=== PATIENT | female | born 1985 | race Caucasian/White ===

== ENCOUNTER 2018-10-22 10:56 | Outpatient (CLI) | payer MEDICAID ==
[2018-10-22 13:20] LABS: RUPTURE FETAL MEMBRANES NEGATIVE (NEGATIVE)
== END 2018-10-22 16:19 | disposition home or self-care (01) ==
LOC: OBT 10:56 → L-D 11:18 → OBT 16:19
DX: O36.5930 Maternal care for other known or suspected poor fetal growth, third trimester, not applicable or unspecified (principal); Z3A.37 37 weeks gestation of pregnancy
CPT/HCPCS: 76815; 76818; 76820; 84112

== ENCOUNTER 2018-11-01 13:15 | Inpatient (IN) | payer MEDICAID ==
[~2018-11-01 13:15] MED LIST: CEFAZOLIN 1 GM INJ
[2018-11-01] MEDS ORDERED: CARBOPROST 250 MCG INJ IM (17:00)
[2018-11-01] MEDS ORDERED: MISOPROSTOL 200 MCG TAB PR (17:00)
[2018-11-01] MEDS ORDERED: METHYLERGONOVINE 0.2 MG INJ IM (17:00)
[2018-11-01] MEDS ORDERED: OXYTOCIN 30 UNITS/LR 500 ML IV ×2 (17:00)
[2018-11-01 17:44] LABS: ADD MAN DIFF? NO
[2018-11-01 17:47] LABS: WHITE BLOOD COUNT 4.6 10^3/ul (4.8-10.8)
[2018-11-01 17:47] LABS: BASOPHILS % 0.2 % (0.0-2.0); EOSINOPHILS % 0.4 % (0.0-7.0); HEMATOCRIT 33.7 % (37.0-47.0); HEMOGLOBIN 11.3 g/dl (12.0-16.0); LYMPHOCYTES # 1.3 10^3/ul (0.8-2.9); LYMPHOCYTES % 27.5 % (15.0-51.0); MEAN CORPUSCULAR HEMOGLOBIN 30.1 pg (29.0-33.0); MEAN CORPUSCULAR HGB CONC 33.5 g/dl (32.0-37.0); MEAN CORPUSCULAR VOLUME 89.6 fl (82.0-101.0); MEAN PLATELET VOLUME 10.4 fl (7.4-10.4); MONOCYTE # 0.3 10^3/ul (0.3-0.9); MONOCYTES % 6.2 % (0.0-11.0); NEUTROPHILS % 65.3 % (39.0-77.0); PLATELET COUNT 209 10^3/UL (140-415); RED BLOOD COUNT 3.76 10^6/ul (4.20-5.40); RED CELL DISTRIBUTION WIDTH 13.6 % (11.5-14.5)
[2018-11-01 18:06] LABS: INR 0.88; PT RATIO 0.9
[2018-11-01 18:07] LABS: PARTIAL THROMBOPLASTIN TIME 30.3 Sec (23.0-35.0)
[2018-11-01] MEDS: LACTATED RINGER'S 1,000 ML IV ×3 (18:29→22:16)
[2018-11-01] MEDS ORDERED: ONDANSETRON 4 MG INJ (20:42)
[2018-11-01] MEDS ORDERED: CITRIC ACID/NA CITRATE 30 ML CUP (20:43)
[2018-11-01] MEDS: CEFAZOLIN 2 GM/50 ML (PMX) 50 ML IVPB (21:28)
[2018-11-01] MEDS ORDERED: METOCLOPRAMIDE 10 MG INJ (22:34)
[2018-11-01] MEDS ORDERED: OXYTOCIN 10 UNIT INJ (22:34)
[2018-11-01] MEDS ORDERED: morphine SULFATE/PF (10 MG/10 ML) INJ (22:34)
[2018-11-01] MEDS ORDERED: PHENYLephrine (100 MCG/ML) 5ML SYG (22:34)
[2018-11-01] MEDS ORDERED: FENTAnyl 50 MCG/ML VIAL (22:34)
[2018-11-01] MEDS ORDERED: ONDANSETRON 4 MG INJ IV ×2 (23:00→23:30)
[2018-11-01] MEDS ORDERED: NALOXONE (0.4 MG/ML) INJ IV (23:00)
[2018-11-01] MEDS ORDERED: TRIMETHOBENZAMIDE 100 MG/ML VIAL IM ×2 (23:00→23:30)
[2018-11-01] MEDS ORDERED: DIPHENHYDRAMINE 50 MG INJ IV ×2 (23:00→23:30)
[2018-11-01] MEDS ORDERED: morphine 2 MG INJ IV ×2 (23:00)
[2018-11-01] MEDS ORDERED: NALBUPHINE HCL (10 MG/1 ML) INJ IV (23:00)
[2018-11-01] MEDS ORDERED: FENTAnyl 50 MCG/ML VIAL IV ×3 (23:30)
[2018-11-01] MEDS ORDERED: hydrALAzine 20 MG INJ IV (23:30)
[2018-11-01] MEDS ORDERED: EPHEDrine SULFATE 50 MG/5 ML SYG IV (23:30)
[2018-11-01] MEDS ORDERED: LABETALOL HCL 20MG INJ IV (23:30)
[2018-11-01] MEDS ORDERED: ALBUTEROL 0.083% (NEB) 2.5 MG/3 ML AMP HHN (23:30)
[2018-11-01] MEDS ORDERED: IPRATROPIUM (NEB) 0.5 MG/2.5 ML AMP HHN (23:30)
[2018-11-01] MEDS ORDERED: HYDROmorphONE 1 MG/5 ML IV SYRINGE IV ×3 (23:30)
[2018-11-01] MEDS ORDERED: MIDAZOLAM 1 MG/ML 2 ML INJ IV (23:30)
[2018-11-01] MEDS ORDERED: MEPERIDINE 25 MG INJ IV (23:30)
[2018-11-02] MEDS ORDERED: METHYLERGONOVINE 0.2 MG INJ IM
[2018-11-02] MEDS ORDERED: MISOPROSTOL 200 MCG TAB PR
[2018-11-02] MEDS ORDERED: NACL 0.9% 3 ML SYG IV
[2018-11-02] MEDS ORDERED: CARBOPROST 250 MCG INJ IM
[2018-11-02] MEDS ORDERED: LANOLIN HPA 1 PKT TOP
[2018-11-02] MEDS ORDERED: OXYTOCIN 30 UNITS/LR 500 ML IV
[2018-11-02] MEDS: OXYTOCIN 30 UNITS/LR 500 ML IV (00:41)
[2018-11-02 04:59] LABS: ADD MAN DIFF? NO
[2018-11-02 05:03] LABS: BASOPHILS % 0.2 % (0.0-2.0); EOSINOPHILS % 0.5 % (0.0-7.0); HEMATOCRIT 36.2 % (37.0-47.0); HEMOGLOBIN 11.5 g/dl (12.0-16.0); LYMPHOCYTES # 1.6 10^3/ul (0.8-2.9); LYMPHOCYTES % 24.2 % (15.0-51.0); MEAN CORPUSCULAR HGB CONC 31.8 g/dl (32.0-37.0); MEAN CORPUSCULAR VOLUME 91.4 fl (82.0-101.0); MEAN PLATELET VOLUME 10.3 fl (7.4-10.4); MONOCYTE # 0.4 10^3/ul (0.3-0.9); MONOCYTES % 5.4 % (0.0-11.0); NEUTROPHIL # 4.5 10^3/ul (1.6-7.5); NEUTROPHILS % 69.2 % (39.0-77.0); PLATELET COUNT 201 10^3/UL (140-415); RED BLOOD COUNT 3.96 10^6/ul (4.20-5.40); RED CELL DISTRIBUTION WIDTH 13.2 % (11.5-14.5)
[2018-11-02 05:03] LABS: WHITE BLOOD COUNT 6.4 10^3/ul (4.8-10.8)
[2018-11-02] MEDS: IBUPROFEN 600 MG TAB PO ×2 (06:00)
[2018-11-02] MEDS: CEFAZOLIN 2 GM/50 ML (PMX) 50 ML IVPB ×3 (06:38→17:55)
[2018-11-02] MEDS: ENOXAPARIN 40 MG/0.4 ML SYG SC (11:21)
[2018-11-02] MEDS: LACTATED RINGER'S 1,000 ML IV (13:17)
[2018-11-02 15:01] LABS: RAPID PLASMA REAGIN NONREACTIVE (NR)
[2018-11-02] MEDS: LANOLIN HPA 1 PKT TOP (17:56)
[2018-11-02] MEDS: KETOROLAC 30 MG INJ IV (22:25)
[2018-11-03] MEDS: OXYCODONE/ACETAMINOPHEN (5/325) TAB PO ×3 (05:31→17:25)
[2018-11-03] MEDS: ENOXAPARIN 40 MG/0.4 ML SYG SC (10:13)
[2018-11-03] MEDS ORDERED: ACETAMINOPHEN 325 MG TAB PO (12:00)
[2018-11-04] MEDS: OXYCODONE/ACETAMINOPHEN (5/325) TAB PO ×4 (00:06→15:57)
[2018-11-04] MEDS: ENOXAPARIN 40 MG/0.4 ML SYG SC (09:38)
== END 2018-11-04 17:15 | disposition home or self-care (01) | DRG 788 ==
LOC: OBT 13:15 → MS1 11-02 02:32 → L-D 13:16 → OBT 16:29 → L-D 16:29
PROVIDERS: Obstetrics & Gynecology
PROC: 10D00Z1 Extraction of Products of Conception, Low, Open Approach (ICD-10-PCS; principal; 2018-11-02)
DX: O36.8130 Decreased fetal movements, third trimester, not applicable or unspecified (principal); O32.2XX0 Maternal care for transverse and oblique lie, not applicable or unspecified; O99.214 Obesity complicating childbirth; E66.01 Morbid (severe) obesity due to excess calories; O75.89 Other specified complications of labor and delivery; R29.898 Other symptoms and signs involving the musculoskeletal system; Z3A.39 39 weeks gestation of pregnancy; Z37.0 Single live birth
CPT/HCPCS: 76815; 76818; 85025; 85610; 85730; 86592; 86850; 86900; 86901; 90686; 97161; 99464